=== PATIENT | female | born 1940 | race Caucasian/White ===

== ENCOUNTER 2017-03-13 07:44 | Outpatient (CLI) | payer OTHER ==
[2017-03-13 08:45] VITALS: BP 261/143; PULSE 95; RESP 18; TEMP 98.1; O2SAT 100
[2017-03-13] MEDS ORDERED: CLON0.1T PO (09:00)
[2017-03-13] MEDS ORDERED: SODIUM CHLOR 0.9% 1000 ML INJ 1,000 ML IV SCH (09:15)
[2017-03-13] MEDS ORDERED: cloNIDine HCL 0.1 MG TAB PO PRN (09:45)
[2017-03-13] MEDS ORDERED: cloNIDine HCL 0.1 MG TAB PO ONE (09:45)
[2017-03-13 10:31] VITALS: BP 264/115; PULSE 84; RESP 20; O2SAT 99
[2017-03-13 11:00] VITALS: BP 188/96; PULSE 76; RESP 18; O2SAT 100
[2017-03-13 11:32] VITALS: BP 148/86
[2017-03-13] MEDS ORDERED: IOHEXOL 350 MG/ML 10 ML VIAL (for RAD DIAG) IV ONE (14:15)
[2017-03-13] MEDS ORDERED: CALC0.25 PO (14:39)
[2017-03-13] MEDS ORDERED: LOVA40TA PO (14:39)
[2017-03-13] MEDS ORDERED: ALLO100T PO (14:39)
--- NOTE | 2017-03-13 18:21 | RADRPT ---
EXAM DATE/TIME: 03/13/2017 13:44 [place] COMPARISON: No previous studies available for comparison. INDICATIONS : Evaluate Aortic Aneurysm IV CONTRAST: 70 cc Omnipaque 350 (iohexol) IV RADIATION DOSE: 3.59 CTDIvol (mGy) MEDICAL HISTORY : None SURGICAL HISTORY : None. ENCOUNTER: Initial ACUITY: 1 day PAIN SCALE: 1/10 LOCATION: TECHNIQUE: Volumetric scanning was performed using a multi-row detector CT scanner. The data was post processed with a variety of visualization algorithms including full volume maximum intensity projection, multi -planar sliding thin slab reformation, curved planar reformation, and surface rendering techniques. Using automated exposure control and adjustment of the mA and/or kV according to patient size, radiat ion dose was kept as low as reasonably achievable to obtain optimal diagnostic quality images. FINDINGS: The abdominal aorta is notable for severe diffuse atheromatous irregularity and aneurysmal dilatation of the infrarenal segment to a maximum diameter of 4.8 cm. There is thick eccentric atheroma involvi ng the proximal neck region at and just below the level of the renal artery origins. There is severe ostial stenosis involving the left renal artery and mild ostial stenosis involving the right renal ar franky. There significant tapering of the proximal celiac and mild proximal SMA stenosis. The aortic an eurysm terminates at the aortic bifurcation. In the distal aortic region, there is significant concen tric mural thrombus with tapering of the luminal diameter to approximately 16-17 mm. There severe jaime cific disease in the common iliac arteries bilaterally, right worse than left. The external iliacs ar e relatively small in caliber but focally free of disease. Common femorals are relatively healthy. Th e left hypogastric is intact and normal in caliber. Right hypogastric is patent but tiny. In the right leg, the profunda is tiny. the superficial femoral artery is healthy in appearance throu ghout. There is eccentric calcific disease involving the above-knee popliteal artery with only a slig ht degree of stenotic narrowing. Satisfactory 3 vessel right calf runoff is present. In the contralateral left leg, the profunda is patent. There is moderate focal eccentric stenosis inv olving the distal left SFA at the adductor hiatus level. Eccentric calcific disease in the above-knee popliteal produces mild luminal narrowing. Satisfactory 3 vessel left calf runoff is present. 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 Renal cysts are present. CONCLUSION: 4.8 cm abdominal aortic aneurysm. Severe bilateral common iliac atherosclerotic disease. Moderately severe focal distal left SFA stenosis with otherwise satisfactory runoff appearance bilate juanjo Zuniga MD on March 13, 2017 at 18:09 Board Certified Radiologist. This report was verified electronically.
== END 2017-03-13 15:15 | disposition home or self-care (01) ==
LOC: HRAD 07:44 → HRIP 07:49 → HRAD 15:15
PROVIDERS: ATTEND Surgery
DX: I71.4 Abdominal aortic aneurysm, without rupture (principal)
CPT/HCPCS: 75635; 96360; 96361; J7030; Q9967